=== PATIENT | female | born 1950 | race Two or more races ===

== ENCOUNTER → 2022-08-12 11:08 | Outpatient (BNVA) | payer MEDICARE, BC, SELFPAY | PROVIDERS: PCP Physician Assistant Medical; Visit Provider Student in an Organized Health Care Education/Training Program | DX: M19.041 Primary osteoarthritis, right hand (principal); M19.042 Primary osteoarthritis, left hand | CPT/HCPCS: 99202 ==

== ENCOUNTER 2023-04-27 09:43 | Outpatient (AMB) | payer MEDICARE, BC, SELFPAY ==
--- NOTE | 2023-04-27 09:49 | MHC.OFFVIS ---
Intake Vital Signs 04/27/23 09:51 Height 5 ft 1 in Weight 154 lb 5.177 oz BMI 29.2 BP 116/64 Blood Pressure Location Rt brachial Position Sitting Pulse 70 Pulse Source Pulse Oximeter Temp 97.3 F Temp Source Skin Pulse Oximetry (%) 96 Intake Visit Reasons: hand OA Intake Note: Pt seen today for hand OA follow up. States she completed OT and is using the brace nightly. Hand pain/discomfort has improved greatly Performance Improvement Specialist Required: No Accompanied by: Self / Same As Patient Allergies No Known Allergies Allergy (Verified 04/27/23 09:58) Medication List - Last Reconciled 04/27/23 by Will Padilla MD calcium citrate-vitamin D3 315 mg-5 mcg (200 unit) (Calcium Citrate + D) 1 tab PO DAILY cholecalciferol (vitamin D3) 50 mcg PO DAILY fluticasone propionate 50 mcg/actuation (Allergy Relief (fluticasone)) 1 spray intranasal DAILY magnesium citrate 250 mg PO DAILY ipbapvybjqze-xdwf-idbkv acid 18-400 mg-mcg (Centrum Women) 1 tab PO DAILY [thumb spica splint wear as much as possible throughout the day & all night] HPI HPI Comments History of Present Illness Details Pt seen today for hand OA follow up. States she completed OT and is using the brace nightly. Hand pain/discomfort has improved significantly. Does not use Tylenol or Voltaren gel Initial history: This is a 72-year-old female with past medical history of osteoporosis, hyperparathyroidism, dyslipidemia presents for evaluation of bilateral hand osteoarthritis. Patient states she has had bilateral hand osteoarthritis for many years. Her main complaint is his right thumb pain. The pain is usually worse when she has to open a can or do twisting movements with her hand or using a screwdriver. She has intermittent triggering of her left hand fingers but that has not been a problem lately. She has not tried any particular formal treatment for her hand arthritis. [facility] Medical History Hx of varicose veins Degeneration of cervical disc without myelopathy Intermittent palpitations Osteoporosis GERD (gastroesophageal reflux disease) Hyperlipidemia Vitamin D deficiency Hyperparathyroidism Surgical History History of bunionectomy History of thyroid surgery History of cholecystectomy Hx of colonoscopy Family History Mother Arthritis Father COPD (chronic obstructive pulmonary disease) Social History Household Members: Spouse Alcohol intake: current Alcohol intake frequency: a few times a month Patient Tobacco Use Status: Never used Tobacco Current occupational status: employed and retired 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 [employer] Review of Systems [facility] [place] and Reports arthralgias Physical Exam Vital Signs: Last Vital Signs Temp 97.3 F 04/27/23 09:51 Pulse 70 04/27/23 09:51 BP 116/64 04/27/23 09:51 Pulse Ox 96 04/27/23 09:51 BMI result Body Mass Index 29.2 Const General: cooperative, healthy appearing, comfortable and no acute distress Nutritional Appearance: overweight Limitations: no limitations HEENT Head: Yes normocephalic and Yes atraumatic Mouth: moist mucous membranes Resp Effort & Inspection: normal respiratory effort and able to speak in complete sentences Extrem Other: Significant bilateral hand osteoarthritic changes worse on the right hand with prominent Heberden's and Yoselin's nodes Right 1st CMC joint tenderness to palpation Positive right 1st CMC test with crepitus No triggering of her hands' flexor tendons today Assessment & Plan Assessment & Plan (1) Osteoarthritis of hands, bilateral: Code(s): M19.041 - Primary osteoarthritis, right hand; M19.042 - Primary osteoarthritis, left hand Qualifiers: Osteoarthritis type: primary Qualified Code(s): M19.041 - Primary osteoarthritis, right hand; M19.042 - Primary osteoarthritis, left hand Plan: This is a 72-year-old female who presents for evaluation of bilateral hand osteoarthritis. Her most symptomatic joint is her right 1st CMC joint. Patient started using a thumb splint since last visit and went occupational therapy. She feels much better. Follow-up as needed. Explained to patient that we can consider a steroid injection if symptoms are getting progressively worse Plan I spent 15 minutes reviewing patient's chart, evaluating patient, counseling patient and documenting in the chart Coding Level of Care Code Est Pt Level 3 (79381) Diagnoses Primary osteoarthritis of both hands M19.041; M19.042 Osteoarthritis type: primary
[2023-04-27 09:51] VITALS: BP 116/64; PULSE 70; TEMP 36.3; O2SAT 96; BMI 29.2
== END 2023-04-27 10:49 | disposition home or self-care (01) ==
PROVIDERS: PCP Physician Assistant Medical; Visit Provider Student in an Organized Health Care Education/Training Program
DX: M19.041 Primary osteoarthritis, right hand (principal); M19.042 Primary osteoarthritis, left hand
CPT/HCPCS: 99213

== ENCOUNTER → 2023-04-27 09:43 | Outpatient (BNVA) | payer MEDICARE, BC, SELFPAY | PROVIDERS: PCP Physician Assistant Medical; Visit Provider Student in an Organized Health Care Education/Training Program | DX: M19.041 Primary osteoarthritis, right hand (principal); M19.042 Primary osteoarthritis, left hand | CPT/HCPCS: 99212 ==

== ENCOUNTER 2025-06-20 13:46 | Outpatient (AMB) | payer MEDICARE, BC, SELFPAY ==
--- NOTE | 2025-06-20 13:51 | A.OFFVIS_ITS ---
Vital Signs 06/20/25 13:56 Height 5 ft 1 in Weight 155 lb 10.342 oz BMI 29.4 BP 120/82 Blood Pressure Location Lt brachial Position Sitting Pulse 95 Pulse Source Pulse Oximeter Pulse Oximetry (%) 95 Oxygen Delivery Method Room Air Intake Visit Reasons: hand OA Intake Note: Patient presents for hand OA follow up. Allergies No Known Allergies Allergy (Verified 06/20/25 13:54) Medication List - Last Reconciled 06/20/25 by Mercy Segovia MD calcium citrate-vitamin D3 315 mg-5 mcg (200 unit) (Calcium Citrate + D) 1 tab PO DAILY cholecalciferol (vitamin D3) 50 mcg PO DAILY fluticasone propionate 50 mcg/actuation (Allergy Relief (fluticasone)) 1 spray intranasal DAILY magnesium citrate 250 mg PO DAILY kbrakygiqeaf-dxui-lzbnk acid 18-400 mg-mcg (Centrum Women) 1 tab PO DAILY [thumb spica splint wear as much as possible throughout the day & all night] HPI Comments Details: Patient is a 75-year-old female with osteoarthritis to bilateral hands here today for follow up Interval History: Patient last seen 04/27/[address] Padilla - Not on rheum meds - States she completed OT and is using the brace nightly. Hand pain/discomfort has improved significantly. Does not use Tylenol or Voltaren gel Today - Not on any rheum meds - Splinting helps alot - No longer uses the gel - Here for new prescription for her CMC splint Rheumatologic History: Initial history: This is a 72-year-old female with past medical history of osteoporosis, hyperparathyroidism, dyslipidemia presents for evaluation of bilateral hand osteoarthritis. Patient states she has had bilateral hand osteoarthritis for many years. Her main complaint is his right thumb pain. The pain is usually worse when she has to open a can or do twisting movements with her hand or using a screwdriver. She has intermittent triggering of her left hand fingers but that has not been a problem lately. She has not tried any particular formal treatment for her hand arthritis. Current Rheumatology Medication(s): [facility] Medical History Hx of varicose veins Degeneration of cervical disc without myelopathy Intermittent palpitations Osteoporosis GERD (gastroesophageal reflux disease) Hyperlipidemia Vitamin D deficiency Hyperparathyroidism Surgical History History of bunionectomy History of thyroid surgery History of cholecystectomy Hx of colonoscopy Family History Mother Arthritis Father COPD (chronic obstructive pulmonary disease) Social History Household Members: Spouse Alcohol intake: current Alcohol intake frequency: a few times a month Patient Tobacco Use Status: Never used Tobacco Current occupational status: employed and retired 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 [employer] Review of Systems Narrative Review of Systems Constitutional: Denies fever, chills, weight loss ENT: Denies vision changes, eye pain or eye redness, dental caries, dry mouth GI: Denies nausea, vomiting, diarrhea, abdominal pain, change in BM Pulm: Denies SOB, NAVARRO, hemoptysis, wheezing Cards: Denies chest pain, palpitations Skin: Denies Raynaud's, rash, nail changes, photosensitivity, [employer]: Denies headaches, weakness, paresthesias, recurrent falls MSK: as per HPI All other systems reviewed and are unremarkable except noted above Physical Exam Exam Exam: Vital signs reviewed Physical Examination CONSTITUITIONAL Patient alert and cooperative. Well appearing and in no apparent painful distress MSK Hands * Right Hand: Able to make a fist. No swelling or tenderness to palpation of the MCPs, PIPs or DIPs. * Left Hand: Able to make a fist. No swelling or tenderness to palpation of the MCPs, PIPs or DIPs. * Herbedens nodes noted bilaterally with ulnar deviation at the level of the 3rd DIP Wrists * Right Wrist: Full ROM to flexion and extension. No swelling or TTP * Left Wrist: Full ROM to flexion and extension. No swelling or TTP Elbows * Right Elbow: Full ROM. No swelling or TTP. No TTP of the medial epicondyle. No TTP of the lateral epicondyle * Left Elbow: Full ROM. No swelling or TTP. No TTP of the medial epicondyle. No TTP of the lateral epicondyle Shoulders * Right shoulder: Full ROM. No swelling noted. No TTP of the AC joint. No TTP of the subacromial bursa. No TTP of the posterior shoulder * Left shoulder: Full ROM. No swelling noted. No TTP of the AC joint. No TTP of the subacromial bursa. No TTP of the posterior shoulder Hip bursa: No tenderness to palpation bilaterally Knees * Right knee: Full ROM. No swelling noted. No TTP of the knee joint line. No TTP of pes anserine bursa * Left knee: Full ROM. No swelling noted. No TTP of the knee joint line. No TTP of pes anserine bursa. * Crepitations felt bilaterally Ankles * Right ankle: Good ankle dorsiflexion and plantar flexion. No swelling. No TTP of the ankle joint * Left ankle: Good ankle dorsiflexion and plantar flexion. No swelling. No TTP of the ankle joint Feet * Right foot: Negative squeeze test * Left foot: Negative squeeze test Tender points? * No tenderness to palpation of the bilateral trapezius, supraspinatus, anterior costochondral junctions, bilateral suboccipital muscle insertions SKIN No rashes Vital Signs: Last Vital Signs Pulse 95 06/20/25 13:56 BP 120/82 06/20/25 13:56 Pulse Ox 95 06/20/25 13:56 Oxygen Delivery Method Room Air 06/20/25 13:56 BMI result Body Mass Index 29.4 Results Reviewed Results Reviewed: no labs Assessment & Plan Assessment & Plan (1) Osteoarthritis of hands, bilateral: Code(s): M19.041 - Primary osteoarthritis, right hand; M19.042 - Primary osteoarthritis, left hand Category: Medical Qualifiers: Osteoarthritis type: primary Qualified Code(s): M19.041 - Primary osteoarthritis, right hand; M19.042 - Primary osteoarthritis, left hand Plan: #Bilateral hand OA Patient is a 75-year-old female with bilateral hand osteoarthritis here today for follow up. Currently stable using splinting. Requesting a new script for splints Plan - Thumb spica splint R and L - RTC 6 months - Labs before visit: CBC, CMP, ESR, CRP, Vitamin D (2) Osteoporosis: Code(s): M81.0 - Age-related osteoporosis without current pathological fracture Qualifiers: Osteoporosis type: age-related Presence of current pathological fracture: without current pathological fracture Qualified Code(s): M81.0 - Age- related osteoporosis without current pathological fracture Plan: #Osteoporosis Patient with known osteoporosis previously treated by endocrinology. Patient states that she was on Prolia for 2 years and then was stopped and wanted to be transferred to [facility] but patient declined She is due for DEXA next year. Told patient to follow up with me in 6 months, and bring her last 3 DEXA scans Plan - Follow up DEXA Plan I spent 30 minutes reviewing the record and labs, taking a history, examining the patient, discussing the treatment plan, ordering diagnostic work up and documenting in the medical record Medications: Refilled [thumb spica splint] wear as much as possible throughout the day & all night 1 ea 0RF M18.12 - Unilateral primary osteoarthritis of first carpometacarpal joint, left hand [thumb spica splint] wear as much as possible throughout the day & all night 1 ea 0RF M18.12 - Unilateral primary osteoarthritis of first carpometacarpal joint, left hand Coding Level of Care Code Est Pt Level 4 (50905) Complex EM visit Add On G2211 Diagnoses Primary osteoarthritis of both hands M19.041; M19.042 Osteoarthritis type: primary Age-related osteoporosis without current pathological fracture M81.0 Osteoporosis type: age-related Presence of current pathological fracture: without current pathological fracture
[2025-06-20 13:56] VITALS: BP 120/82; PULSE 95; O2SAT 95; BMI 29.4
--- OUTSIDE RECORDS SUMMARY | 2025-06-20 20:09 | XMS_ITS | Encounter Summary ---
Author Organization [facility] Address [address] [place] [address] Phone Care Team Providers Care Paint Roller Covers Supervisor Name Role Phone Susy Sainz Primary Care Provi mila Encounter Details Date Type Department Care Team ([facility] st Contact Info) Description 06/15/2022 Procedure Pass Non-Invasive Cardiology [address] [place] [address] Social History Tobacco Use Types Packs/Day Years Used Date Smoking Tobacco: Never Smokeless Tobacco: Never Comments Unknown Sex and Gender Information Value Date Recorded Sex Assigned at Not on file Legal Sex Female 1:18 PM EDT Gender Identity Not on file Sexual Orientation Not on file documented as of this encounter Plan of Treatment Not on file documented as of this encounter Visit Diagnoses Not on filedocumented in this encounter Care Teams Paint Roller Covers Supervisor Relationship Specialty Start Date End Date Susy Sainz PA [address] [place] [address] PCP - General Health Information Internship 06/08/22 documented as of this encounter Additional Source Comments The information contained in this document represents components of the legal health record. It is not the complete legal health record.[facility]
--- OUTSIDE RECORDS SUMMARY | 2025-06-20 20:09 | XMS_ITS | Data Portability ---
Author Organization [facility], Main Office Address [address] [facility] [address] [facility] [address] [place] [address] Care Team Providers Care Warp Dresser Name Role Phone [facility] Reproduction Artist JASON EGAN Retail Pharmacy Manager JANELLE URBANO Primary Care Provider [phone] REJI GREGORY Reproduction Artist [phone] AAKASH CARRASQUILLO Hairspring Vibrator MELISA RÍOS Vascular Surgeon REMA ABREU Contract Runner CECILIO MANCERA Oxygen Furnace Operator Assessment Encounter Date Assessment Date Assessment LastModified by Organization Details LastModified Time 02/27/2023 02/27/2023 This service was provided using telemedicine. Patient consented to video & audio visit Patient was located in the [facility]. Provider was located in the office. No other persons participated in the telemedicine visit except for the patient unless otherwise indicated here. Total time of visit was 22 minutes. Not available 02/27/2023 09:54:03 07/03/2023 07/03/2023 This service was provided using telemedicine. Patient consented to video & audio visit Patient was located in the [facility]. Provider was located in the office. No other persons participated in the telemedicine visit except for the patient unless otherwise indicated here. Total time of visit was 23 minutes. Not available 07/03/2023 10:41:34 Plan of Treatment Reminders Order Date Submit Date Provider Last Modified By Organization Details Last Modified Time Details Appointments [id number] 2024 10:00A M Janelle Urbano PA-C Not available Not available Not available Lab CBC w/ auto diff 2023 024 ANUJA [facility] (Centralized Electronic Ordering - All Locations), Patient Can Go To The Location Of Their Choice, [id number] 07/09/2024 06:08:42 lipid panel, serum 2023 024 ANUJA [facility] (Centralized Electronic Ordering - All Locations), Patient Can Go To The Location Of Their Choice, [id number] 07/09/2024 06:08:44 CMP, serum or plasma 2023 024 ANUJA [facility] (Centralized Electronic Ordering - All Locations), Patient Can Go To The Location Of Their Choice, [id number] 07/09/2024 06:08:43 lipid panel, serum 2022 023 ANUJA [facility], [address], [address], [place], [address], 06/22/2023 16:44:49 CMP, serum or plasma 2022 023 ANUJA [facility], [address], [address], [place], [address], 06/22/2023 16:44:47 vitamin D, 25-hydrox y, total, serum 2022 023 ANUJA [facility], [address], [address], [place], [address], 06/22/2023 16:57:16 Referral None recorded. Procedures None recorded. Surgeries None recorded. Imaging MAMMO, screening , bilateral 2022 023 [facility], [address] [place], [address], 06/20/2023 10:57:13 Medication Orders triamcino lone acetonide 0.1 % topical cream 2022 023 [email or web address] [facility] #[id number], [address] [place] [address], [address], 06/20/2023 09:23:09 Patient TargetsNo targets recorded. Patient Instructions Encounter Date Encounter Id Patient Instructions Last Modified By Organization Details Last Modified Time 06/20/2023 [id number] advance care planning: care instructions Not available 06/20/2023 09:59:14 gastroesophageal reflux disease (GERD): care instructions Not available 06/20/2023 10:08:30 preventing falls : care instructions Not available 06/20/2023 09:44:37 medicare prevent venessa services guide (female 74yrs and under) Not available 06/20/2023 09:44:37 When You Want to Lose Weight: Care Instructions Not available 06/20/2023 09:44:37 heart valve dise ase: care instructions Not available 06/20/2023 10:12:47 dash diet: care instructions Not available 06/20/2023 09:53:17 07/03/2023 [id number] coronavirus (covid-19): care instructions Not available 07/03/2023 10:41:46 isolation procedures: care instructions Not available 07/03/2023 10:41:46 07/05/2024 [id number] cervical disc disease: care instructions Not available 07/05/2024 15:30:41 osteoporosis: ca re instructions Not available 07/05/2024 15:30:41 gastroesophageal reflux disease (GERD): care instructions Not available 07/05/2024 15:30:41 preventing falls : care instructions Not available 07/05/2024 15:30:41 well visit, over 65: care instructions Not available 07/05/2024 15:30:41 high cholesterol : care instructions Not available 07/05/2024 15:30:41 supraventricular tachycardia: care instructions Not available 07/05/2024 15:30:41 learning about healthy weight Not available 07/05/2024 15:30:41 heart valve dise ase: care instructions Not available 07/05/2024 15:30:41 high blood press ure: care instructions Not available 07/05/2024 15:30:42 learning about h igh blood pressure Not available 07/05/2024 15:30:41 Reason for Referral None Reported. Results Created Date Observation Date Name Description Value Unit Range Abnormal Flag Note LastModifiedBy Organization Detail LastModifiedTime 06/22/2006/22/2023 COMPR EHENS VENESSA METAB OLIC PANL glucose 87 mg/dL (70-99 ) Not Available [facility] (Centralized Electronic Ordering - All Locations) Patient Can Go To The Location Of Their Choice, 06/22/2023 16:44:47 06/22/2006/22/2023 COMPR EHENS VENESSA METAB OLIC PANL BUN 24 mg/dL (8-23) high Not Available [facility] (Centralized Electronic Ordering - All Locations) Patient Can Go To The Location Of Their Choice, 06/22/2023 16:44:47 06/22/2006/22/2023 COMPR EHENS VENESSA METAB OLIC PANL creatinine 0.7 mg/dL (0.5-1 .0) Not Available [facility] (Centralized Electronic Ordering - All Locations) Patient Can Go To The Location Of Their Choice, 06/22/2023 16:44:47 06/22/2006/22/2023 COMPR EHENS VENESSA METAB OLIC PANL sodium 139 mmol/ L (133-1 45) Not Available [facility] (Centralized Electronic Ordering - All Locations) Patient Can Go To The Location Of Their Choice, 06/22/2023 16:44:47 06/22/2006/22/2023 COMPR EHENS VENESSA METAB OLIC PANL potassium 4.5 mmol/ L (3.6-5 .2) Not Available [facility] (Centralized Electronic Ordering - All Locations) Patient Can Go To The Location Of Their Choice, 06/22/2023 16:44:47 06/22/2006/22/2023 COMPR EHENS VENESSA METAB OLIC PANL chloride 105 mmol/ L (98-10 7) Not Available [facility] (Centralized Electronic Ordering - All Locations) Patient Can Go To The Location Of Their Choice, 06/22/2023 16:44:47 06/22/2006/22/2023 COMPR EHENS VENESSA METAB OLIC PANL bicarbonate 26 mmol/ L (22-29 ) Not Available [facility] (Centralized Electronic Ordering - All Locations) Patient Can Go To The Location Of Their Choice, 06/22/2023 16:44:47 06/22/2006/22/2023 COMPR EHENS VENESSA METAB OLIC PANL anion gap 8 (4-17) Not Available [facility] (Centralized Electronic Ordering - All Locations) Patient Can Go To The Location Of Their Choice, 06/22/2023 16:44:47 06/22/2006/22/2023 COMPR EHENS VENESSA METAB OLIC PANL albumin 4.4 gm/dL (3.4-4 .8) Not Available [facility] (Centralized Electronic Ordering - All Locations) Patient Can Go To The Location Of Their Choice, 06/22/2023 16:44:47 06/22/2006/22/2023 COMPR EHENS VENESSA METAB OLIC PANL calcium 9.4 mg/dL (8.6-1 0.5) Not Available [facility] (Centralized Electronic Ordering - All Locations) Patient Can Go To The Location Of Their Choice, 06/22/2023 16:44:47 06/22/2006/22/2023 COMPR EHENS VENESSA METAB OLIC PANL bilirubin,to zaida 0.6 mg/dL (0-1.2 ) Not Available [facility] (Centralized Electronic Ordering - All Locations) Patient Can Go To The Location Of Their Choice, 06/22/2023 16:44:47 06/22/2006/22/2023 COMPR EHENS VENESSA METAB OLIC PANL total protein 6.7 gm/dL (6.2-8 .2) Not Available [facility] (Centralized Electronic Ordering - All Locations) Patient Can Go To The Location Of Their Choice, 06/22/2023 16:44:47 06/22/2006/22/2023 COMPR EHENS VENESSA METAB OLIC PANL Ag ratio 1.9 Not Available [facility] (Centralized Electronic Ordering - All Locations) Patient Can Go To The Location Of Their Choice, 06/22/2023 16:44:47 06/22/2006/22/2023 COMPR EHENS VENESSA METAB OLIC PANL AST 22 U/L (0-32) Not Available [facility] (Centralized Electronic Ordering - All Locations) Patient Can Go To The Location Of Their Choice, 06/22/2023 16:44:47 06/22/2006/22/2023 COMPR EHENS VENESSA METAB OLIC PANL alk phos 66 U/L (35-10 4) Not Available [facility] (Centralized Electronic Ordering - All Locations) Patient Can Go To The Location Of Their Choice, 06/22/2023 16:44:47 06/22/2006/22/2023 COMPR EHENS VENESSA METAB OLIC PANL ALT 27 U/L (0-33) Not Available [facility] (Centralized Electronic Ordering - All Locations) Patient Can Go To The Location Of Their Choice, 06/22/2023 16:44:47 06/22/2006/22/2023 COMPR EHENS VENESSA METAB OLIC PANL estimated GFR creatinine 88 mL/mi n/1.7 3_M2 Creat inine based estim ated glome rular filtr ation (eGFR ) in adult s is calcu lated using the Natio nal Kidne y Found ation recom dahiana d 2020 CKD-E PI equat ion. Estim ates GFR from serum creat inine , age and sex. Not Available [facility] (Centralized Electronic Ordering - All Locations) Patient Can Go To The Location Of Their Choice, 06/22/2023 16:44:47 06/22/2006/22/2023 LIPID PANEL cholesterol, total 243 mg/dL (<200) high Not Available [facility] ([facility] - All Locations) Patient Can Go To The Location Of Their Choice, 06/22/2023 16:44:49 06/22/2006/22/2023 LIPID PANEL triglyceride 87 mg/dL (<150) Not Available [facility] ([facility] - [facility] Locations) Patient Can Go To The Location Of Their Choice, 06/22/2023 16:44:49 06/22/2006/22/2023 LIPID PANEL HDL chol 66 mg/dL (>39) Not Available [facility] (Centralized Electronic Ordering - All Locations) Patient Can Go To The Location Of Their Choice, [id number] 06/22/2023 16:44:49 06/22/20 23 06/22/2023 LIPID PANEL LDL cholesterol, calculated 160 mg/dL (0-130 ) high Not Available [facility] ([facility]ized Electronic Ordering - All Locations) Patient Can Go To The Location Of Their Choice, [id number] 06/22/2023 16:44:49 06/22/20 23 06/22/2023 LIPID PANEL non HDL cholesterol (calc) 177 mg/dL (<160) high Not Available [facility] ([facility] Ordering - All Locations) Patient Can Go To The Location Of Their Choice, [id number] 06/22/2023 16:44:49 06/22/20 23 06/22/2023 25OH VITAM IN D 25OH vitamin D 47.2 NG/mL (20-50 ) Not Available [facility] ([facility]ized Electronic Ordering - All Locations) Patient Can Go To The Location Of Their Choice, [id number] 06/22/2023 16:57:16 07/08/20 24 07/08/2024 CBC WITH DIFFE RENTI AL/PL ATELE T WBC 5.3 x10e3 /uL 3.4-10 .8 normal Not Available [facility] ([facility]) [address] [place], [address], 07/09/2024 06:08:42 07/08/20 24 07/08/2024 CBC WITH DIFFE RENTI AL/PL ATELE T RBC 4.99 x10e6 /uL 3.77-5 .28 normal Not Available [facility] ([facility]) [address] [place], [address], 07/09/2024 06:08:42 07/08/20 24 07/08/2024 CBC WITH DIFFE RENTI AL/PL ATELE T hemoglobin 15.6 g/dL 11.1-1 5.9 normal Not Available [facility] ([facility]) [address] [place], [address], 07/09/2024 06:08:42 07/08/20 24 07/08/2024 CBC WITH DIFFE RENTI AL/PL ATELE T hematocrit 47.3 % 34.0-4 6.6 above high normal Not Available [facility] ([facility]) [address] [place], [address], 07/09/2024 06:08:42 07/08/20 24 07/08/2024 CBC WITH DIFFE RENTI AL/PL ATELE T MCV 95 fL 79-97 normal Not Available [facility] ([facility]) [address] [place], [address], 07/09/2024 06:08:42 07/08/20 24 07/08/2024 CBC WITH DIFFE RENTI AL/PL ATELE T MCH 31.3 pg 26.6-3 3.0 normal Not Available [facility] ([facility]) [address] [place], [address], 07/09/2024 06:08:42 07/08/20 24 07/08/2024 CBC WITH DIFFE RENTI AL/PL ATELE T MCHC 33.0 g/dL 31.5-3 5.7 normal Not Available [facility] ([facility]) [address] [place], [address], 07/09/2024 06:08:42 07/08/20 24 07/08/2024 CBC WITH DIFFE RENTI AL/PL ATELE T RDW 12.2 % 11.7-1 5.4 Not Available [facility] ([facility]) [address] [place], [address], 07/09/2024 06:08:42 07/08/20 24 07/08/2024 CBC WITH DIFFE RENTI AL/PL ATELE T platelets 209 x10e3 /uL 150-45 0 normal Not Available [facility] ([facility]) [address] [place], [address], 07/09/2024 06:08:42 07/08/20 24 07/08/2024 CBC WITH DIFFE RENTI AL/PL ATELE T neutrophils 71 % not estab. normal Not Available [facility] ([facility]) [address] [place], [address], 07/09/2024 06:08:42 07/08/20 24 07/08/2024 CBC WITH DIFFE RENTI AL/PL ATELE T lymphs 17 % not estab. normal Not Available [facility] ([facility]) [address] [place], [address], 07/09/2024 06:08:42 07/08/20 24 07/08/2024 CBC WITH DIFFE RENTI AL/PL ATELE T monocytes 9 % not estab. normal Not Available [facility] ([facility]) [address] [facility], [place], [address], 07/09/2024 06:08:42 07/08/20 24 07/08/2024 CBC WITH DIFFE RENTI AL/PL ATELE T eos 2 % not estab. normal Not Available [facility] ([facility]) [address] [facility], [place], [address], 07/09/2024 06:08:42 07/08/20 24 07/08/2024 CBC WITH DIFFE RENTI AL/PL ATELE T basos 1 % not estab. normal Not Available [facility] ([facility]) [address] [facility], [place], [address], 07/09/2024 06:08:42 07/08/20 24 07/08/2024 CBC WITH DIFFE RENTI AL/PL ATELE T immature cells UNIVERSITY PROFESSOR Not Available [facility] ([facility]) [address] [place], [address], 07/09/2024 06:08:42 07/08/20 24 07/08/2024 CBC WITH DIFFE RENTI AL/PL ATELE T neutrophils (absolute) 3.8 x10e3 /uL 1.4-7. 0 normal Not Available [facility] ([facility]) [address] [facility], [place], [address], 07/09/2024 06:08:42 07/08/20 24 07/08/2024 CBC WITH DIFFE RENTI AL/PL ATELE T lymphs (absolute) 0.9 x10e3 /uL 0.7-3. 1 normal Not Available [facility] ([facility]) [address] [facility], [place], [address], 07/09/2024 06:08:42 07/08/20 24 07/08/2024 CBC WITH DIFFE RENTI AL/PL ATELE T monocytes(ab solute) 0.5 x10e3 /uL 0.1-0. 9 normal Not Available [facility] ([facility]) [address] [facility], [place], [address], 07/09/2024 06:08:42 07/08/20 24 07/08/2024 CBC WITH DIFFE RENTI AL/PL ATELE T eos (absolute) 0.1 x10e3 /uL 0.0-0. 4 normal Not Available [facility] ([facility]) [address] [facility], [place], [address], 07/09/2024 06:08:42 07/08/20 24 07/08/2024 CBC WITH DIFFE RENTI AL/PL ATELE T baso (absolute) 0.0 x10e3 /uL 0.0-0. 2 normal Not Available [facility] ([facility]) [address] [facility], [place], [address], 07/09/2024 06:08:42 07/08/20 24 07/08/2024 CBC WITH DIFFE RENTI AL/PL ATELE T immature granulocytes 0 % not estab. Not Available [facility] ([facility]) [address] [facility], [place], [address], 07/09/2024 06:08:42 07/08/20 24 07/08/2024 CBC WITH DIFFE RENTI AL/PL ATELE T immature grans (abs) 0.0 x10e3 /uL 0.0-0. 1 Not Available [facility] ([facility]) [address] [facility], [place], [address], 07/09/2024 06:08:42 07/08/20 24 07/08/2024 CBC WITH DIFFE RENTI AL/PL ATELE T NRBC UNIVERSITY PROFESSOR Not Available [facility] ([facility]) [address] [facility], [place], [address], 07/09/2024 06:08:42 07/08/20 24 07/08/2024 CBC WITH DIFFE RENTI AL/PL ATELE T hematology comments: UNIVERSITY PROFESSOR Not Available [facility] ([facility]) [address] [facility], [place], [address], 07/09/2024 06:08:42 07/08/20 24 07/08/2024 COMP. METAB OLIC PANEL (14) glucose 85 mg/dL 70-99 normal Not Available [facility] ([facility]) [address] [facility], [place], [address], 07/09/2024 06:08:43 07/08/20 24 07/08/2024 COMP. METAB OLIC PANEL (14) BUN 16 mg/dL 8-27 normal Not Available [facility] ([facility]) [address] [place], [address], 07/09/2024 06:08:43 07/08/20 24 07/08/2024 COMP. METAB OLIC PANEL (14) creatinine 0.72 mg/dL 0.57-1 .00 normal Not Available [facility] ([facility]) [address] [place], [address], 07/09/2024 06:08:43 07/08/20 24 07/08/2024 COMP. METAB OLIC PANEL (14) eGFR 89 mL/mi n/1.7 3 >59 normal Not Available [facility] ([facility]) [address] [facility], [place], [address], 07/09/2024 06:08:43 07/08/20 24 07/08/2024 COMP. METAB OLIC PANEL (14) BUN/creatini ne ratio 22 12-28 normal Not Available [facility] ([facility]) [address] [place], [address], 07/09/2024 06:08:43 07/08/20 24 07/08/2024 COMP. METAB OLIC PANEL (14) sodium 139 mmol/ L 134-14 4 normal Not Available [facility] ([facility]) [address] [place], [address], 07/09/2024 06:08:43 07/08/20 24 07/08/2024 COMP. METAB OLIC PANEL (14) potassium 4.3 mmol/ L 3.5-5. 2 normal Not Available [facility] ([facility]) [address] [place], [address], 07/09/2024 06:08:43 07/08/20 24 07/08/2024 COMP. METAB OLIC PANEL (14) chloride 103 mmol/ L 96-106 normal Not Available [facility] ([facility]) [address] [place], [address], 07/09/2024 06:08:43 07/08/20 24 07/08/2024 COMP. METAB OLIC PANEL (14) carbon dioxide, total 22 mmol/ L 20-29 normal Not Available [facility] ([facility]) [address] [facility] [place], [address], 07/09/2024 06:08:43 07/08/20 24 07/08/2024 COMP. METAB OLIC PANEL (14) calcium 9.2 mg/dL 8.7-10 .3 normal Not Available [facility] ([facility]) [address] [facility] [place], [address], 07/09/2024 06:08:43 07/08/20 24 07/08/2024 COMP. METAB OLIC PANEL (14) protein, total 6.6 g/dL 6.0-8. 5 normal Not Available [facility] ([facility]) [address] [facility], [place], [address], 07/09/2024 06:08:43 07/08/20 24 07/08/2024 COMP. METAB OLIC PANEL (14) albumin 4.3 g/dL 3.8-4. 8 normal Not Available [facility] ([facility]) [address] [facility], [place], [address], 07/09/2024 06:08:43 07/08/20 24 07/08/2024 COMP. METAB OLIC PANEL (14) globulin, total 2.3 g/dL 1.5-4. 5 Not Available [facility] ([facility]) [address] [facility], [place], [address], 07/09/2024 06:08:43 07/08/20 24 07/08/2024 COMP. METAB OLIC PANEL (14) bilirubin, total 0.7 mg/dL 0.0-1. 2 normal Not Available [facility] ([facility]) [address] [facility], [place], [address], 07/09/2024 06:08:43 07/08/20 24 07/08/2024 COMP. METAB OLIC PANEL (14) alkaline phosphatase 70 IU/L 44-121 normal Not Available [facility] ([facility]) [address] [facility] [place], [address], 07/09/2024 06:08:43 07/08/20 24 07/08/2024 COMP. METAB OLIC PANEL (14) AST (SGOT) 22 IU/L 0-40 normal Not Available [facility] ([facility]) [address] [facility], [place], [address], 07/09/2024 06:08:43 07/08/20 24 07/08/2024 COMP. METAB OLIC PANEL (14) ALT (SGPT) 22 IU/L 0-32 normal Not Available [facility] ([facility]) [address] [place], [address], 07/09/2024 06:08:43 07/08/20 24 07/08/2024 LIPID PANEL cholesterol, total 223 mg/dL 100-19 9 above high normal Not Available [facility] ([facility]) [address] [facility] [place], [address], 07/09/2024 06:08:43 07/08/20 24 07/08/2024 LIPID PANEL triglyceride s 100 mg/dL 0-149 normal Not Available [facility] ([facility]) [address] [facility] [place], [address], 07/09/2024 06:08:43 07/08/20 24 07/08/2024 LIPID PANEL HDL cholesterol 67 mg/dL >39 normal Not Available [facility] ([facility]) [address] [facility] [place], [address], 07/09/2024 06:08:43 07/08/20 24 07/08/2024 LIPID PANEL VLDL cholesterol katt 18 mg/dL 5-40 Not Available [facility] ([facility]) [address] [facility] [place], [address], 07/09/2024 06:08:43 07/08/20 24 07/08/2024 LIPID PANEL LDL chol calc ([facility]) 138 mg/dL 0-99 above high normal Not Available [facility] ([facility]) [address] [facility] [place], [address], 07/09/2024 06:08:43 07/08/20 24 07/08/2024 LIPID PANEL LDL calc comment: UNIVERSITY PROFESSOR Not Available [facility] ([facility]) [address] [facility] [place], [address], 07/09/2024 06:08:43 07/01/20 24 07/01/2024 MAMMO , scree travis, digit al, bilat eral PROCED URE: MM Digita l Mammo Screen ing INDICA TION: Screen ing for breast cancer . COMPAR PRIYANKA: Multip le prior examin ations , most recent ly 2022. TECHNI QUE: Full-f ield digita l CC and MLO 3D tomosy nthesi s images of both breast s were acquir ed. Comput er-aid ed detect ion (CAD) was utiliz ed in the interp retati on of this study. DENSIT Y: The breast tissue The breast tissue is hetero geneou sly dense, which may obscur e small masses . FINDIN GS: No suspic ious masses , suspic ious microc alcifi cation s, or areas of renu ectura l distor tion are seen in either breast to sugges t malign jane. IMPRES ALESIA: No mammog raphic eviden ce of malign jane. RECOMM ENDATI ON: Annual mammog raphic screen ing BI-RAD S: 1 (Negat venessa) Lay letter mailed to nilton t I have person ally review ed the images and I agree with this report . WSN: [id number] Orderi ng Physic angelina: Dionte Urbano Dictat ed By: Tuan gorman MD, Callie Beckett Dictat ed Date/T ramakrishna: 4:37 pm Review ed By: Eri Mart MD Signed By: Eri Mart MD Signed Date/T ramakrishna: 4:42 pm Transc ribed By: CSB Transc riptio n Date/T ramakrishna: 3:36 pm Birads : Nilton beckett Class: Outpat ient [facility] (Outpt Imaging) [address] [place], [address], 07/02/2024 07:53:48 07/01/20 24 07/01/2024 MAMMO , scree travis, bilat eral No observ ation record ed. [email or web address] [facility] [address], [place], [address], 07/02/2024 10:49:35 Result Notes Documentation Provider Name and Address Organization Details Recorded Time Mammo, Screening, Digital, Bilateral : PROCEDURE: MM Digital Mammo Screening INDICATION: Screening for breast cancer. COMPARISON: Multiple prior examinations, most recently 06/27/2023. TECHNIQUE: Full-field digital CC and MLO 3D tomosynthesis images of both breasts were acquired. Computer-aided detection (CAD) was utilized in the interpretation of this study. DENSITY: The breast tissue The breast tissue is heterogeneously dense, which may obscure small masses. FINDINGS: No suspicious masses, suspicious microcalcifications, or areas of architectural distortion are seen in either breast to suggest malignancy. IMPRESSION: No mammographic evidence of malignancy. RECOMMENDATION: Annual mammographic screening BI-RADS: 1 (Negative) Lay letter mailed to patient I have personally reviewed the images and I agree with this report. WSN: [id number] Ordering Physician: Janelle Urbano Dictated By: Ricky Beasley MD Dictated Date/Time: 07/01/24 4:37 pm Reviewed By: Lucy Mart MD Signed By: Lucy Mart MD Signed Date/Time: 07/01/24 4:42 pm Transcribed By: SIMEON Pre Kindergarten Teacher Date/Time: 07/01/24 3:36 pm Birads: Patient Class: Outpatient [facility] 07/02/2024 07:53:48 Problems Name Problem SNOMED Code Status Onset Date Resolution Date Notes Provider Name and Address Organization Details Recorded Time Hand pain 72454994 Completed 11/03/2016 [facility] 7 14:54:40 Suspecte d COVID-19 [id number] Completed 06/16/2021 Removal Reason: Problem added by user [email or web address] from the COVID-19 watch flag [facility]ina [facility] 1 09:08:35 Allergic rhinitis 56604832 Completed 200702/25/2014 RECORDED 05/13/20 08 12:42PM BY WAQAS PAPPAS ON/ADDEN DUM Not Available [facility] 4 14:24:15 Allergic rhinitis [id number] Completed 200703/17/2014 RECORDED 05/13/20 08 12:42PM BY BRAN [place], KHOAATI ON/ADDEN DUM Not Available [facility] [facility] 4 06:41:34 Administ ration of bacteria l and viral vaccine Completed 201002/25/2014 RECORDED 10/08/19 11 11:24AM BY OMID DYKES MD, OFFICE VISIT Not Available [facility] 4 14:24:16 Screenin g for malignan t neoplasm of colon Completed 201002/25/2014 DATE: 10/08/19 11; RECORDED 02/02/20 13 1:24PM BY NELSON QUINONES MA, ANNOTATI ON/ADDEN DUM Not Available [facility] 4 14:24:17 Administ ration of bacteria l and viral vaccine Completed 201003/17/2014 RECORDED 10/08/19 11 11:24AM BY OMID DYKES MD, OFFICE VISIT Not Available [facility] 4 06:41:34 Screenin g for malignan t neoplasm of colon Completed 201003/17/2014 DATE: 10/08/19 11; RECORDED 02/02/20 13 1:24PM BY NELSON QUINONES MA, ANNOTATI ON/ADDEN DUM Not Available [facility] 4 06:41:34 Influenz a vaccine needed [id number] 06 Completed 201002/25/2014 RECORDED 06/25/20 11 10:47AM BY LUIGI MONTANA MA, NURSE VISIT Not Available [facility] 4 14:24:16 Influenz a vaccine needed [id number] 06 Completed 201003/17/2014 RECORDED 06/25/20 11 10:47AM BY LUIGI MONTANA MA, NURSE VISIT Not Available [facility] 4 06:41:34 Hyperlip idemia 58709214 Completed 201102/25/2014 RECORDED 10/10/19 12 9:56AM BY OMID DYKES MD, ANNOTATI ON/ADDEN DUM Luigi birmingham [facility] null, [facility] 0 13:30:55 Hyperlip idemia 01858153 Completed 201103/17/2014 RECORDED 10/10/19 12 9:56AM BY OMID DYKES MD, ANNOTATI ON/ADDEN DUM SAEID Al[facility], [facility] 0 13:30:55 Epigastr ic pain 35892277 Completed 201202/25/2014 RECORDED 02/02/20 13 1:24PM BY NELSON QUINONES MA, ANNOTATI ON/ADDEN DUM Not Available [facility] 4 14:24:15 Acne 59486032 Completed 201211/03/2016 Angelika mckenna, [facility] 7 14:54:01 Screenin g for malignan t neoplasm of breast Completed 201202/25/2014 RECORDED 02/02/20 13 1:25PM BY NELSON QUINONES MA, ANNOTATI ON/ADDEN DUM Not Available [facility] 4 14:24:16 Screenin g for malignan t neoplasm of cervix Completed 201202/25/2014 RECORDED 02/02/20 13 1:24PM BY NELSON QUINONES MA, ANNOTATI ON/ADDEN DUM Not Available [facility] 4 14:24:16 Contact dermatit is 56665963 Completed 201202/25/2014 RECORDED 02/02/20 13 1:24PM BY NELSON QUINONES MA, ANNOTATI ON/ADDEN DUM Not Available [facility] 4 14:24:16 Gastroes ophageal reflux disease 467398767 Completed 201202/25/2014 RECORDED 02/02/20 13 1:25PM BY NELSON QUINONES MA, ANNOTATI ON/ADDEN DUM Angelika mckenna, [facility] 7 14:54:12 Gastroes ophageal reflux disease 631386950 Active 2012 SAEID [facility], [facility] 3 09:14:13 Adult health examinat ion Completed 201211/03/2016 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; RECORDED 02/02/20 13 1:50PM BY OMID DYKES MD, OFFICE VISIT Angelika mckenna, [facility] 7 14:54:04 Laborato ry procedur e performe d [id number] Completed 201202/25/2014 RECORDED 02/02/20 13 1:24PM BY NELSON QUINONES MA, ANNOTATI ON/ADDEN DUM Not Available [facility] 4 14:24:16 Patient status finding [id number] Completed 201211/03/2016 RECORDED 02/02/20 13 1:28PM BY NELSON QUINONES MA, OFFICE VISIT Angelika mckenna, [facility] 7 14:53:55 Osteopor osis 40031621 Active 2012 SAEID B[facility], [facility] 3 09:14:13 Pain of joint of hand 518479581 Completed 201202/25/2014 RECORDED 02/02/20 13 1:25PM BY NELSON QUINONES MA, ANNOTATI ON/ADDEN DUM Not Available [facility] 4 14:24:16 Pain of joint 33760993 Completed 201202/25/2014 RECORDED 02/02/20 13 1:24PM BY NELSON QUINONES MA, ANNOTATI ON/ADDEN DUM Not Available [facility] 4 14:24:16 Primary hyperpar athyroid ism 89941026 Active 2012 Pt. had parathyr oid surgery. SAEID B[facility], [facility] 3 09:14:13 Adult health examinat ion Completed 201202/25/2014 RECORDED 02/02/20 13 1:24PM BY NELSON QUINONES MA, ANNOTATI ON/ADDEN DUM Angelika mckenna, [facility] 7 14:54:04 Disorder of bone and articula r cartilag e 421856422 Completed 201211/03/2016 Angelika mckenna, [facility] 7 14:54:57 Vitamin D deficien cy 83800880 Active 2012 SAEID B[facility], [facility] 3 09:14:13 Verruca vulgaris 53624876 Completed 201202/25/2014 RECORDED 02/02/20 13 1:25PM BY NELSON QUINONES MA, ANNOTATI ON/ADDEN DUM Not Available [facility] 4 14:24:17 Epigastr ic pain 89240367 Completed 201203/17/2014 RECORDED 02/02/20 13 1:24PM BY NELSON QUINONES MA, ANNOTATI ON/ADDEN DUM Not Available [facility] 4 06:41:34 Screenin g for malignan t neoplasm of breast Completed 201203/17/2014 RECORDED 02/02/20 13 1:24PM BY NELSON QUINONES MA, ANNOTATI ON/ADDEN DUM Not Available [facility] 4 06:41:34 Screenin g for malignan t neoplasm of cervix Completed 201203/17/2014 RECORDED 02/02/20 13 1:24PM BY NELSON QUINONES MA, ANNOTJENNIE ON/ADDEN DUM Not Available [facility] 4 06:41:34 Contact dermatit is 85922502 Completed 201203/17/2014 RECORDED 02/02/20 13 1:24PM BY NELSON QUINONES MA, ANNOTATI ON/ADDEN DUM Not Available [facility] 4 06:41:34 Gastroes ophageal reflux disease 445014514 Completed 201203/17/2014 RECORDED 02/02/20 13 1:25PM BY NELSON QUINONES MA ANNOTATI ON/ADDEN DUM Angelika mckenna, [facility] 7 14:54:12 Laborato ry procedur e performe d 710698713 Completed 201203/17/2014 RECORDED 02/02/20 13 1:24PM BY NELSON QUINONES MA, ANNOTATI ON/ADDEN DUM Not Available [facility] 4 06:41:34 Pain of joint of hand 350423704 Completed 201203/17/2014 RECORDED 02/02/20 13 1:25PM BY NELSON QUINONES MA, ANNOTATI ON/ADDEN DUM Not Available [facility] 4 06:41:34 Pain of joint 91037378 Completed 201203/17/2014 RECORDED 02/02/20 13 1:24PM BY NELSON QUINONES MA, ANNOTATI ON/ADDEN DUM Not Available [facility] 4 06:41:34 Verruca vulgaris 08261409 Completed 201203/17/2014 RECORDED 02/02/20 13 1:25PM BY NELSON QUINONES MA, ANNOTATI ON/ADDEN DUM Not Available [facility] 4 06:41:34 Hyperlip idemia 85877786 Active 2019 SAEID [facility] 3 09:14:13 Degenera tion of cervical interver tebral disc 63011719 Active 2019 SAEID [facility] 3 09:14:13 Varicose veins of lower extremit y 36693124 Active 2019 SAEID B[facility], [facility] 3 09:14:13 Exposure to viral disease Completed 201905/21/2020 SAEID Alvarez, [facility] 0 13:31:06 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 95872274876 9109 Active 2021 SAEID [facility] 3 09:14:13 Electroc ardiogra m abnormal 954711896 Active 2021 Misti Gupta MA null, [facility] 3 09:14:13 Benign essentia l hyperten alesia 4143433 Active 2021 Misti Gupta MA null, [facility] 3 09:14:13 Chest pain 22868148 Active 2021 Misti Gupta MA null, [facility] 3 09:14:13 Paroxysm al supraven tricular tachycar giselle 29719301 Active 2022 SAEID B[facility], [facility] 3 09:14:13 Body mass index 25-29 - overweig ht 755740819 Active 2022 Janelle Urbano PA-C [address], [place], [address] , [facility] 3 09:44:37 Aortic valve disorder 6148808 Active 2022 Janelle Urbano PA-C [address], [place], [address] , [facility] 3 10:12:41 COVID-19 333146319 Active 2022 Janelle Urbano PA-C [address], [place], [address] , [facility] 3 10:41:40 Problem Notes None recorded. Procedures Surgical History Date Name Laterality Status Provider Name and Address Organization Details Recorded Time 024 Most Recent Mammogram completed [facility] 07/02/2024 07:53:44 024 Mammogram both breasts completed Keira [facility]ado [facility] 07/05/2024 15:12:51 023 Advanced Care Planning completed Janelle Urbano PA-C [address], [place], [address], [facility] 06/20/2023 09:58:56 021 Mammogram screening completed Marian[facility] 06/21/2021 14:23:20 020 Six-Item Cognitive Test completed Rocio [facility] 02/10/2020 08:44:57 019 Date of Last Pap Smear completed Faye [facility] 06/25/2019 13:40:22 019 Date of Last Colonoscopy completed [facility] 08/24/2018 10:27:46 019 Colonoscopy completed [facility] 08/24/2018 10:27:36 019 Mini-Cog Test completed Angelika [facility]onan [facility] 08/14/2018 15:28:03 017 FOBT completed Luigi harman [facility] 03/28/2017 16:23:06 014 Most Recent Bone Density completed Angelika [facility]an [facility] 06/02/2015 09:57:46 011 Other completed [facility]aciela Francis [facility] 04/09/2021 13:43:51 008 Gastrointestinal Surgery completed Graciela [facility] 04/09/2021 13:43:51 008 Cholecystectomy completed [facility]aciela [facility] 06/07/2022 10:41:04 Cataract Surgery completed Keira [facility] 07/05/2024 15:14:30 Cataract Surgery completed Keira [facility] 07/05/2024 15:14:48 Imaging Results None recorded. Procedure Notes None recorded. Medical Equipment None Reported. Allergies Allergen ID Allergen Name Allergen Category Reaction Reaction Severity Criticality Documentation Date Start Date Code Code System Note Provider Name and Address Organization Details Recorded Time 9222 No known allergy (situatio n) Not available Not available Not available Not available 02/18/20142012 40482 6003 SNSABINA mckenna [facility] 7 15:13:25 No known drug allergies Medications Name Sig Start Date Stop Date Status Note LastModified by Organization Details LastModified Time amoxicill in 500 mg capsule TAKE 1 CAPSULE BY MOUTH THREE TIMES A DAY active Not Available Not Available No t Available clindamyc in HCl 300 mg capsule TAKE 1 CAPSULE 3 TIMES A DAY UNTIL FINISHED 07/05 completed Not Available Not Available Not Available azithromy yeison 250 mg tablet TAKE 2 TABLETS BY MOUTH TODAY, THEN TAKE 1 TABLET DAILY FOR 4 DAYS 02/27 completed Not Available Not Available Not Available Claritin 10 mg tablet Take 1 tablet every day by oral route as directed . 04/11 completed Not Available Not Available Not Available meloxicam 15 mg tablet Take 1 tablet every day by oral route for 30 days. 05/21 completed Not Available Not Available Not Available alendrona te 70 mg tablet TAKE 1 TABLET BY MOUTH EVERY WEEK 02/27 completed disconti nued in jun 2023 Not Available Not Available Not Available clindamyc in HCl 150 mg capsule TAKE 1 CAPSULE BY MOUTH EVERY 6 HOURS active Not Available Not Available No t Available fexofenad ine 180 mg tablet Take every 24 hours by oral route. 06/20 completed Not Available Not Available Not Available triamcino lone acetonide 0.1 % topical cream APPLY THIN COAT TO AFFECTED AREA TWICE A DAY 06/20 completed Not Available Not Available Not Available calcium 315 mg (as citrate)- ergocalci ferol (vit D2) 200 unit tablet Take every 24 hours by oral route. 06/20 completed Not Available Not Available Not Available ketorolac 0.5 % eye drops INSTILL STARTING TWO DAYS BEFORE SURGERY 1 DROP TWICE A DAY IN OPERATIV E EYE 07/05 completed Not Available Not Available Not Available calcium 600 mg (as calcium carbonate 1,500 mg) tablet Take 1 tablet every day by oral route as directed . 02/09 completed Not Available Not Available Not Available prednisol one acetate 1 % eye drops,tracey pension INSTILL 1 DROP INTO THE LASERED EYE 3 TIMES A DAY FOR 5 DAYS FOLLOWIN G LASER 07/05 completed Not Available Not Available Not Available halobetas ol propionat e 0.05 % topical ointment APPLY A THIN LAYER TO THE AFFECTED AREA(S) BY TOPICAL ROUTE ONCE DAILY DO NOT EXCEED 50 GRAMS PER WEEK OR 2 WEEKS DURATION 04/11 completed Not Available Not Available Not Available ergocalci ferol (vitamin D2) 1,250 mcg (50,000 unit) capsule Take 1 capsule every day by oral route. 04/11 completed Not Available Not Available Not Available triamcino lone acetonide 0.1 % lotion Apply 0.1 mg every day by topical route for 30 days. 04/11 completed Not Available Not Available Not Available fluticaso ne propionat e 50 mcg/actua tion nasal spray,tracey pension [place] 1 spray every day by nasal route as directed for 60 days. 06/20 completed Not Available Not Available Not Available Calcium Citrate + D 315 mg-5 mcg (200 unit) tablet Take 1 tablet every day by oral route. active Not Available Not Available No t Available Vitamin D 50,000 unit capsule ONCE A WEEK 02/09 completed RECORDED 02/10/20 10 1:00PM BY OMID DYKES MD, REFILL REQUEST; THIS ORDER DISCONTI NUED PER Helicomm-SPA N. Not Available Not Available Not Available cyclobenz aprine 5 mg tablet Take 1 tablet every day by oral route for 14 days. 02/09 completed Not Available Not Available Not Available omeprazol e magnesium 20 mg tablet,de layed release Take 1 tablet as needed by oral route. active rarely uses Not Available Not Available Not Available magnesium 150 mg daily active Not Available Not Available No t Available omeprazol e QD 10/07 completed RECORDED 10/08/19 11 11:30AM BY OMID DYKES MD, ANNOTATI ON/FATMATA DUM; Not Available Not Available Not Available Centrum Silver 1 daily active Not Available Not Available Not Available Zostavax (PF) 19,400 unit/0.65 mL subcutane ous suspensio n IBETH X 1 10/20 completed RECORDED 10/30/19 13 2:36PM BY OMID DYKES MD, MEDICATI ON AUTO-LUIS CTIVATIO N; Not Available Not Available Not Available diclofena c 1 % topical gel APPLY 2G TOPICALL Y 4 TIMES A DAY APPLY TO AFFECTED JOINT 02/27 completed Not Available Not Available Not Available vitamin E mixed-priya otrienol active Not Available Not Available Not Available Prolia 60 mg/mL subcutane ous syringe Inject 60 mL every 3 months by sub-q route as directed for 30 days. 08/14 completed 60 ml every 6 months Not Available Not Available Not Available Probiotic 1 daily active Not Available Not Av ailable Not Available Vitamin D3 50 mcg (2,000 unit) capsule 1 capsule every day by oral route. active Not Available Not Available No t Available Fluarix Quad [id number] (PF) 60 mcg (15 mcg x 4)/0.5 mL IM syringe 11/03 completed Not Available Not Available Not Available magnesium citrate 125 mg capsule Take 1 capsule every day by oral route. 06/18 completed Not Available Not Available Not Available Clenpiq 10 mg-3.5 gram-12 gram/160 mL oral solution 02/05 completed Not Available Not Available Not Available Fluzone High-Dose Quad (PF) 240 mcg/0.7 mL IM syringe PHARMACY ADMINIST ERED 05/21 completed Not Available Not Available Not Available BinaxNOW COVID-19 Ag Self Test kit 07/03 completed Not Available Not Available Not Available Vitals Date Recorded Body height Body mass index (BMI) Body weight Heart rate Oxygen saturation Oxygen saturation in Arterial blood by Pulse oximetry Body temperature Systolic And Diastolic Provider Name and Address Organization Details Last Updated DateTime 5 156.21 cm 28.1 kg/m2 53511.4 5 g 81 /min 97 % 97 % 98 [degF] 129/78 mm[Hg] Abimbola Ocampo [facility] 5 15:22:06 Date Recorded Body height Body mass index (BMI) Body weight Provider Name and Address Organization Details Last Updated DateTime 02/27/2023 156.21 cm 28.4 kg/m2 04674.63 g Lucy Higgins [place] [facility] 02/27/2023 09:35:25 Date Recorded Body height Body mass index (BMI) Body weight Oxygen saturation Oxygen saturation in Arterial blood by Pulse oximetry Heart rate Body temperature Systolic And Diastolic Provider Name and Address Organization Details Last Updated DateTime 3 156.21 cm 28.8 kg/m2 40057.8 2 g 98 % 98 % 83 /min 97.3 [degF] 127/77 mm[Hg] Misti Gupta [facility] 3 09:20:38 Date Recorded Body height Body mass index (BMI) Body weight Heart rate Oxygen saturation Oxygen saturation in Arterial blood by Pulse oximetry Body temperature Systolic And Diastolic Provider Name and Address Organization Details Last Updated DateTime 4 156.21 cm 27.6 kg/m2 97854.7 7 g 87 /min 96 % 96 % 97.3 [degF] 121/76 mm[Hg] Keira [facility]ado [facility] 4 15:08:22 Social History Question Answer Notes LastModified by Organizat ion Details LastModified Time Tobacco Smoking Status [facility] 09:58:05 Do You Have An Advance Directive? No [email or web address] Information not available 06/20/2023 Is Blood Transfusion Acceptable In An Emergency? Yes Information not available 06/02/2015 What Is Your Level Of Caffeine Consumption? None Decaf Information not available 07/05/2024 How Much Tobacco Do You Chew? None Information not available 06/02/2015 In The 14 Days Before Symptom Onset, Have You Had Close Contact With A Laboratory-confir med COVID-19 While That Case Was Ill? No Information not available 06/20/2023 In The 14 Days Before Symptom Onset, Have You Had Close Contact With A Person Who Is Under Investigation For COVID-19 While That Person Was Ill? No [email or web address] Information not available 06/20/2023 Have You Been To An Area Known To Be High Risk For COVID-19? No [email or web address] Information not available 06/20/2023 What Type Of Diet Are You Following? REGULAR Information not available 07/05/2024 Which Illicit Or Recreational Drugs Have You Used? None Information not available 05/21/2020 Have There Been Any Changes To Your Family Or Social Situation? No [email or web address] Information no t available 06/20/2023 Are There Any Guns Present In Your Home? No [email or web address] Information not available 06/20/2023 Live Alone Or With Others? With Others [email or web address] Information not available 06/20/2023 Do You Take Precautions To Prevent Distracted Driving? Yes Information not available 06/02/2015 How Often Do You Need To Have Someone Help You When You Read Instructions, Pamphlets, Or Other Written Material From Your Doctor Or Pharmacy? Never Information not available 06/02/2015 Have You Served In The ? No Information not available 11/03/2016 Have You Or Anyone In Your Household Had Any Of The Following Symptoms In The Last 14 Days: Sore Throat, Cough, Chills, Body Aches For Unknown Reasons, Shortness Of Breath For Unknown Reasons, Loss Of Smell, Loss Of Taste, Fever At Or Greater Than 100 Degrees Fahrenheit? No Information not available 02/10/2020 Are You Or Anyone In Your Household A Health Care Provider Or Emergency Responder? No [email or web address] Information not available 02/10/2020 To The Best Of Your Knowledge Have You Been In Close Proximity To Any Individual Who Tested Positive For COVID-19? No [email or web address] Information not available 02/10/2020 What Was The Date Of Your Most Recent Tobacco Screening? 07/05/2024 Information not available 07/05/2024 How Many Children Do You Have? 1 Information not available 06/02/2015 Do You Use Protection During Sex? No Information not available 06/02/2015 Do You Use Your Seat Belt Or Car Seat Routinely? Yes [email or web address] Information not available 04/09/2021 Seat Belts Used Routinely Yes [email or web address] Information not available 06/20/2023 Are You Sexually Active? No [email or web address] Information not available 04/09/2021 Smoke Alarm In Home Yes [email or web address] Information not available 06/20/2023 Do You Have Smoke And Carbon Monoxide Detectors In Your Home? Yes Information not available 04/09/2021 At What Age Did You Start Smoking Tobacco? 0 Information not available 05/21/2020 Are You Passively Exposed To Smoke? No [email or web address] Information no t available 04/09/2021 How Much Tobacco Do You Smoke? No Information not available 06/02/2015 Do You Use Sunscreen Routinely? Yes Information not available 06/02/2015 How Many Years Have You Smoked Tobacco? 0 Information not available 03/28/2017 Sex: Unknown Functional Status Question Answer Note LastModified by Organizat ion Details LastModified Time Do you use any illicit or recreational drugs? No Information not available 07/05/2024 What is your level of alcohol consumption? Occasional Information not available 06/02/2015 Do you or have you ever used smokeless tobacco? Never used smokeless tobacco [email or web address] Information not available 02/10/2020 Are you currently employed? Yes [email or web address] Information not available 06/07/2022 Are you able to walk independently without assistance or assistive devices? [email or web address] Information not available 06/20/2023 Are you able to care for yourself independently? 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 Never used electronic cigarettes [email or web address] Information not available 06/20/2023 What is your exercise level? Occasional walking 30 min daily and stretches Information not available 07/05/2024 Mental Status None recorded. Family History Relationship Description Onset Age of this Age Resolved Age Notes LastModified by Organization Details LastModified Time Mother Arthritis 94 old age [email or web address] Not available 06/02/2015 10:30:17 Father Chronic obstructive pulmonary disease 69 [email or web address] Not available 10:30:17 Brother Malignant neoplasm of larynx 57 brothe r doing well [email or web address] Not available 06/20/2023 09:05:07 Medical History Condition Response Other N Gout N Kidney Stones N Blood Diseases N Hyperthyroidism N Breast Cancer N Hypothyroidism N Lung Disease N COPD N Depression N Defects or Inherited Disease N Anesthesia Complications N Headaches/Migraines N Varicose Veins Y Anxiety Disorder N Obesity N Vision or Eye Problems N Arthritis Y Head Injury/Concussion N Infertility N Polyps N Congenital Anomalies N Acid Reflux (GERD) Y Cancer N Stroke N ADHD N Endometriosis N High Cholesterol N Liver Disease N Fibromyalgia N Kidney Disease N Heart Problems N Ear or Hearing Problems N Hospitalizations Y Thyroid Problems N GI Problems N Acne N Eating Disorder N Skin Problems N Anemia N Constipation N Bladder Problems N Mental Illness N Ovarian Cancer N Diabetes N Blood Transfusions N Seizures/Epilepsy N Tuberculosis N AIDS/HIV N Congestive Heart Failure (CHF) N Eczema N Diverticulitis N Abuse/Domestic Violence N Asthma N Allergies N Reflux/GERD Y Hepatitis N Pulmonary Embolism N Hypertension N Chicken Pox N Autism Spectrum Disorder (ASD) N Osteoporosis Y Gynecological History Statement/Question Response Abnormal Pap N Flow Heavy 05/07/2002 STIs/STDs N Duration of Flow (days) 7 Age at Menarche 16 Current Control Method None Most Recent Mammogram 07/01/2024 Age at First Child 30 If Post Menopausal, Age at Menopause 52 Date of Last Colonoscopy 08/24/2018 Most Recent Bone Density 05/07/2014 Sexually Active? Y Date of Last Pap Smear 06/19/2019 Sexual Problems? N Desired Control Method N/A N Obstetrics History GPAL:G 0 P 0 0 0 0 Immunizations Vaccine Type Date Status Note Provider Nam e and Address Organization Details Recorded Time Influenza, split virus, quadrivalent, PF 6 completed Not Available [facility] 11/15/2022 08:38:40 Influenza, high-dose, quadrivalent, PF 0 completed Not Available [facility] 11/15/2022 08:38:40 COVID-19, mRNA, LNP-S, PF, 30 mcg/0.3 mL dose 1 completed Not Available [facility] 11/15/2022 08:38:40 COVID-19, mRNA, LNP-S, PF, 30 mcg/0.3 mL dose 1 completed Not Available [facility] 11/15/2022 08:38:40 Influenza, split virus, quadrivalent, preservative 9 completed Not Available [facility] 11/15/2022 08:38:40 Influenza, high-dose, trivalent, PF 9 completed Not Available [facility] 11/15/2022 08:38:40 COVID-19, mRNA, LNP-S, PF, 30 mcg/0.3 mL dose 1 completed Not Available [facility] 11/15/2022 08:38:40 Influenza, split virus, quadrivalent, PF 7 completed Not Available [facility] 11/15/2022 08:38:40 Td (adult), 2 Lf tetanus toxoid, preservative free, adsorbed 1 completed Not Available [facility] 11/15/2022 08:38:40 Influenza, high-dose, quadrivalent, PF 2 completed Not Available [facility] 11/15/2022 08:38:40 COVID-19, mRNA, LNP-S, PF, 30 mcg/0.3 mL dose, dwayne-sucrose 2 completed Not Available [facility] 11/15/2022 08:38:40 Influenza, split virus, quadrivalent, PF 5 completed Not Available [facility] 11/15/2022 08:38:40 pneumococcal polysaccharide PPV23 9 completed Not Available [facility] 11/15/2022 08:38:40 Influenza, high-dose, quadrivalent, PF 1 completed Not Available [facility] 11/15/2022 08:38:40 Influenza, split virus, quadrivalent, preservative 4 completed [facility] 06/20/2023 09:20:57 COVID-19, mRNA, LNP-S, bivalent, PF, 30 mcg/0.3 mL dose 3 completed [facility] 06/20/2023 09:20:57 COVID-19, mRNA, LNP-S, PF, dwayne-sucrose, 30 mcg/0.3 mL 3 completed [facility] 06/20/2023 09:25:57 Influenza, high-dose, quadrivalent, PF 4 completed [facility] 07/05/2024 15:06:11 Influenza, high-dose, trivalent, PF 4 completed [facility] 07/05/2024 15:06:11 COVID-19, mRNA, LNP-S, PF, dwayne-sucrose, 30 mcg/0.3 mL 4 completed Not Available [facility] 12/24/2024 15:03:44 Td (adult), 2 Lf tetanus toxoid, preservative free, adsorbed 1 completed Not Available [facility] 11/15/2022 08:38:40 Tdap 1 completed Not Available [facility] 11/15/2022 08:38:40 Influenza, split virus, trivalent, preservative 1 completed Not Available [facility] 11/15/2022 08:38:40 zoster live 3 completed Not Available [facility] 11/15/2022 08:38:40 Past Encounters Encounter ID Performer Location Encounter Start Date Encounter Closed Date Diagnosis/Indication Diagnosis SNOMED-CT Code Diagnosis ICD10 Code Diagnosis IMO Codes Diagnosis Note [id number] [facility] [address] [facility] [place] [address] 11/03/2006 00:00:00 [id number] [employer] [facility] [address] [facility] [place] [address] 07/17/2007 00:00:00 [id number] [employer] erce [address] [facility] [place] [address] 01/22/2008 00:00:00 [id number] [employer] [facility]ce [address] [facility] [place] [address] 05/13/2008 00:00:00 [id number] [facility] erce [address] [facility] [place] [address] 07/06/2009 00:00:00 [id number] [facility] [facility] [address] [facility] [place] [address] 07/16/2009 00:00:00 [id number] [place], [place] [address] 10/05/2009 00:00:00 [id number] [address] [address] [place], [place] [address] 02/22/2010 00:00:[id number] [facility] [address] [place], [place] [address] 08/27/2010 00:00:00 [id number] [facility] erce [address] [place], [place] [address] 10/07/2010 00:00:00 [id number] [employer] erce [address] [facility] [place], [place] [address] 10/10/2011 00:00:00 [id number] [employer] erce [address] [facility] [place] [address] 02/01/2013 00:00:00 [id number] Omid fermin MD Main Office [address] [place] [address] 06/02/2015 09:46:55 06/02/2015 10:38:57 Adult health examination 307346637 Z00.00 colonoscop y due in 2016/Mectalf Needs infl uenza immunization 781370590 Z23 Osteoporosis 79289336 M8 1.[address] Carrasquillo who treats her hyperpara and her osteoporos is [id number] Omid fermin MD Main Office [address] [place] [address] 11/03/2016 14:35:15 11/03/2016 16:10:47 Acute dermatitis 88173559 L30.9 Vitamin D deficiency 347 89923 E55.9 Hyperlipidemia 10843582 E78.5 Screening for malignant neoplasm of colon 661917448 Z12.11 [id number] Omid fermin MD Main Office [address] [place] [address] 03/28/2017 15:44:24 03/28/2017 16:39:24 Screening for malignant neoplasm of colon 233107659 Z12.11 [id number] Omid fermin MD Main Office [address] [facility] [address] [place] [address] 04/11/2017 13:21:03 04/11/2017 14:28:14 Adult health examination 506168929 Z00.00 Screening for malignant neoplasm of cervix 392816215 Z12.4 Screening for malignant neoplasm of breast 958643957 Z12.39 Needs infl uenza immunization 014957124 Z23 [id number] Janelle Urbano PA-C Main Office [address] [facility] [address] [place] [address] 08/14/2018 15:11:45 08/14/2018 16:10:44 Adult health examination 709695435 Z00.00 Influenza vaccine needed 2987343825 106 Z23 Administra tion of pneumococcal vaccine 59834522 Z23 Screening for malignant neoplasm of breast 728393206 Z12.31 Screening for malignant neoplasm of cervix 872437692 Z12.4 Hyperlipidemia 15619486 E78.00 retest labs. Primary hyperparathyroidism 64142836 E21.0 monitored by endocrinol ogist Osteoporosis 17371204 M8 1.0 F/u endo. [id number] Meet Hassan MD Main Office [address] [facility] [address] [place] [address] 02/05/2019 10:35:13 02/05/2019 11:48:41 Acute ankle pain 8560221619 9105 M25.572 suspect contusion of L lat mal, doubt gout since no h/o such and no heat check xray to r/o hairline fx if + will send to ortho if negative, then cont augusto wrap (to decrease mild edema), nsaids, ice/elevat e - in a few days consider warm soak/alpha bet stretch [id number] Drew Garcia MD Telehealt [address] [facility] [address] [place] [address] 01/06/2020 13:07:14 01/06/2020 15:38:40 Chronic neck pain 5479669858 107 M54.2 start with PT, NSAIDs and muscle relaxants. F/u 4-6 weeks. Strain of right trapezius muscle 1278765153 4230245 S29.012A [id number] Drew Garcia MD [facility] [address] [address] [place] [address] 02/10/2020 08:07:39 02/10/2020 11:49:26 Adult health examination 957121893 Z00.00 Vaccines are up to date. All preventati ve tests reviewed and are up to date. Osteoporosis 49199010 M8 1.0 F/u endo. pt.. is on alendronat e. Vitamin D deficiency 347 36274 E55.9 stable on vit D3 supplement s. Hyperlipidemia 29164233 E78.00 retest labs. Varicose v eins of lower extremity 06705144 I83.91 Degenerati on of cervical intervertebral disc 39726636 M50.30 mild disease. Pt. will continue PT and home exercises and take meloxicam prn as discussed. Primary hyperparathyroidism 48556525 E21.0 monitored by endocrinol ogist [id number] Dick Teixeira MD [facility] [address] [address] [place] [address] 05/21/2020 10:36:30 05/21/2020 14:27:12 Diarrhea 55611403 R19.7 will check stool studies and bloodwork. ? viral/ infectious as her has the exact same sx. recommend a daily probiotic/ yogurt and hydration, bland foods as advance as tolerated. Abdominal pain 41669344 R10.9 [id number] Janelle Urbano PA-C Main Office [address] [address] [place] [address] 04/09/2021 13:39:17 04/09/2021 14:24:55 Adult health examination 097798479 Z00.00 update Td today and recommend flu vaccine. Requires a tetanus booster 715431129 Z23 Screening for malignant neoplasm of cervix 517234720 Z12.4 Screening for malignant neoplasm of breast 655222429 Z12.31 Osteoporosis 75231175 M8 1.0 F/u endo. pt.. is on alendronat e. Hyperlipidemia 19148656 E78.00 retest fasting labs. Vitamin D deficiency 347 68921 E55.9 stable on vit D3 supplement s. Degenerati on of cervical intervertebral disc 78634682 M50.30 mild disease. continue PT and acupunctur e. Gastroesop hageal reflux disease 487656037 K21.9 managed with diet and PPI PRN. [id number] Logan Santos MD Main Office [address] [facility] [address] [place] [address] 06/07/2022 10:38:13 06/07/2022 11:44:38 Adult health examination 731680422 Z00.00 recommend Prevnar 20. Hyperlipidemia 02237445 E78.00 retest fasting labs.Eric nue low fat diet. Osteoporosis 41601508 M8 1.0 F/u endo. pt.. is on alendronat e. Degenerati on of cervical intervertebral disc 76496008 M50.30 mild disease. continue PT and acupunctur e. Screening for malignant neoplasm of breast 568949191 Z12.31 already booked by pt. Administra tion of pneumococcal vaccine 91830300 Z23 referral Intermitte nt palpitations 085836879 R00.2 initiate labs and echo cardiogram as well as referral to cardiologi . Osteoarthr itis of joint of bilateral hands 5350016894 86775 M19.041 refer to rheumatolo gist. Gastroesop hageal reflux disease 259943408 K21.9 managed with diet and PPI PRN. Vitamin D deficiency 347 94109 E55.9 stable on vit D3 supplement s. [id number] EMMANUEL UNGER MD Telehealt h [address] [address] [place] [address] 02/27/2023 08:42:18 02/27/2023 10:01:17 Eczema 02742551 L30.9 Apply steroid cream thin payer twice daily for 1 week. Avoid scratching the area. [id number] Logan Santos MD Main Office [address] [facility] [address] [place] [address] 06/20/2023 09:03:24 06/20/2023 10:15:40 Adult health examination 667377345 Z00.00 recommend Prevnar 20 and RSV vaccines are recommende d through the pharmacy. Referral for mammograph y provided. Gastroesop hageal reflux disease 122184397 K21.9 managed with diet and PPI PRN. Osteoarthr itis of joint of bilateral hands 9955190300 33719 M19.041 stable Body mass index 25-29 - overweight 294522874 E66.3 Z68.28 discussed recom. to increase exercise activity. Lower total calories and carbs. Benign ess ential hypertension 7721651 I10 sees cardiology yearly, has stable blood pressure on low sodium diet. Degenerati on of cervical intervertebral disc 97284053 M50.30 mild disease. continue PT and acupunctur e. Hyperlipidemia 10802309 E78.00 retest fasting labs.Eric nue low fat diet. Osteoporosis 61542729 M8 1.0 F/u endo. pt.. is on alendronat e. Vitamin D deficiency 347 18048 E55.9 stable on vit D3 supplement s. Administra tion of pneumococcal vaccine 10949235 Z23 referral Screening for malignant neoplasm of breast 893306047 Z12.31 already booked by pt. Advance di rective discussed with patient 957074018 Z71.89 Discussed MOLST and proxy and filled out forms. Aortic valve disorder 87 28932 I35.9 Very mild grade. PT. is asymptomat ic and has echo done every [address] [id number] Logan Santos MD Telehealt h [address] [facility] [place] [address] 07/03/2023 10:13:08 07/03/2023 10:49:19 COVID-19 533309639 U07.1 Mild symptoms related to COVID 19. PT. had all her booster including a new booster recently. She is almost 5 days into her symptoms, so advised not to start Paxlovid at this point. Recommend symptomati c reliev otc meds, hydration and rest. Isolation recommenda tions discussed. [id number] Meet Hassan MD Main Office [address] [facility] [place] [address] 07/05/2024 14:47:25 07/05/2024 15:38:17 Adult health examination 783122785 Z00.00 recommend Prevnar 20 and RSV vaccines are recommende d through the pharmacy. Referral for mammograph y provided. Body mass index 25-29 - overweight 806338249 E66.3 Z68.27 discussed recom. to increase exercise activity. Lower total calories and carbs. Benign ess ential hypertension 9584777 I10 sees cardiology yearly, has stable blood pressure on low sodium diet. Aortic valve disorder 87 68597 I35.9 Very mild grade. PT. is asymptomat ic and has echo done every [address] Davila on of cervical intervertebral disc 63691137 M50.30 mild disease. continue PT and acupunctur e. Hyperlipidemia 90504944 E78.00 retest fasting labs.Eric nue low fat diet. Gastroesop hageal reflux disease 025796706 K21.9 managed with diet and PPI PRN. Osteoporosis 91869901 M8 1.0 F/u endo. Just had repeat bone density this week. Has intoleranc e to alendronat e. Paroxysmal supraventricular tachycardia 75091291 I47.10 stable with occasional symptoms. Vitamin D deficiency 347 30520 E55.9 stable on vit D3 supplement s. Administra tion of pneumococcal vaccine 61124722 Z23 referral [id number] Dick Teixeira MD Main Office [address] [facility] [address] [facility] [place] [address] 12/24/2024 14:59:29 12/24/2024 15:58:57 Trochanteric bursitis of left hip 9275977734 11942 M70.62 [id number] Recommend for now to continue advil 400 mg TID with food and consider seeing orthopedic s for cortisone injection. Health Concerns Section Related Observation LastModified by Organization Detai ls LastModified Time None Recorded Concern Status LastModified by Organization Details LastModified Time None Recorded Advance Directives Directive N: Payers Insurance Date Sequence Insurance Name Policy Number Policy Armstrong Covered Member ID Armstrong Member ID Guarantor Name 12/24/2024 1 [place]ICARE [place]: [employer] Bertha Bailey [id number] Bertha Bailey 01/06/2025 2 [facility] [place] [place] [id number] Bertha Bailey [id number] Bertha Bailey Notes Date Note Type Note Provider Name and Address Organization Details Recorded Time 02/27/2023 text/html 72 year old female c/o pruritic patch on the skin of the lower back for 1 week, about a size of quater. Denies tenderness, drainage, tingling , numbness or pain. Uses calamine for itching. NO fever, chills. Janelle Urbano PA-C [address] [address], [place], [address], [facility] 02/27/2023 09:55:06 06/20/2023 text/html Medicare Annual Wellness VisitReported by PatientSocial/Behavior al HistoryFor diet and nutrition, patient reportshealthy diet. For fracture risk, patient reportsno history of fractures,no recent explained fracture,no sudden unexplained fractures, andno previous musculoskeletal injuries. For physical activity, patient reportsexercises on a regular basis,recent increase in physical activity, andgood physical condition.Mental Status:For depression risk, patient reportsnever feels sad, empty, or tearful,no loss of interest in activities,no significant changes in weight,no sleep disturbances or insomnia,no agitation,no loss of energy,no feelings of worthlessness or guilt,no thoughts of suicide,no history of depression, andno history of mood disorders. For orientation, patient reportsno disorientation to time,no disorientation to date, andno disorientation to place. For concentration and memory, patient reportsno decreased concentrating ability,no memory lapses or loss, anddoes not forget words. For speech/motor difficulties, patient reportsno speech difficulties,no difficulty expressing formulated concepts,no difficulty with fine manipulative tasks,no difficulty writing/copying,no slowed reaction time, anddoes not knock things over when trying to pick them up.Functional AbilityFor hearing, patient reportsno loss of hearing. For vision, patient reportsno vision problems. For activities of daily living, patient reportsable to bathe with limited or no assistance,able to contol urination and bowels,able to dress with limited or no assistance,able to feed self with limited or no assistance,able to get out of chair or bed with limited or no assistance,able to groom with limited or no assistance, andable to toilet with limited or no assistance. For instrumental activities of daily living, patient reportsable to do house work with limited or no assistance,able to grocery shop with limited or no assistance,able to manage medications with limited or no assistance,able to manage money with limited or no assistance,able to prepare meals with limited or no assistance, andable to use the phone with limited or no assistance. For falls risk assessment, patient reportsno frequent falls while walking,no fall in the past year,no fall since last visit, andno dizziness/vertigo. For home safety, patient reportsno unsafe jai hazzards,no unsafe stairs,no unsafe gas appliances,working smoke/co detectors,wears protective head gear for biking/high velocity,use of seatbelts,practicing 'safer sex',no vision or hearing loss while driving,no fire arms,has hand bars in the bathroom/shower, andgood lighting in the home.ROS as noted in the HPI 73 year old female for annual Medicare wellness.Mammogram normal a year ago in June. Colonoscopy was normal i 2018. Recall 10 year for 1 more procedure.Colonoscopy normal in 2019 with 10 year recall.Vaccines: Up to date on COVID, Tdap, flu vaccine. Needs: Prevnar 20, RSV.BMI is 28.8Paroxysmal SVT. Sees bar assistant yearly. Pt. c/o ongoing intermittent palpitations for the past year. No chest pressure or pain, no dyspnea at rest or on exertion. NO dizziness or light headedness.Last Holter was negative in July of 2022. Recommended to repeat every 3 years. Mild aortic insufficiency.Mild hyperlipidemia , diet controlled. HTN is stable on no meds.Osteoporosis. Last bone density in 2019. Pt. is on alendronate. Sees endo for this and is booked for repeat bone density. Continues Vit D supplements. No fractures reported in the past year.Cervical disc degeneration. No pain, no constant symptoms. ROM is limited in the neck on rotation, muscle spasms occur. Sees chiropractor and acupuncture monthly.PHQ, COTY , 6CIT and fall risk assessments are negative. Janelle Urbano PA-C [address] [facility] [address], [place], [address], [facility] 06/20/2023 10:14:15 07/03/2023 text/html COVID-19 Symptom s December 2019Reported by [id number] year old female c/o cold symptoms for 4-5 days. Tested positive today. was with COVID a week ago. Pt. has relatively mild symptoms of congestion and fatigue. NO cough. Had immunization and all boosters. NO fever, chills. Janelle Urbano PA-C [address] [address], [place], [address], [facility] [place] 07/03/2023 10:43:30 07/05/2024 text/html Medicare Annual Wellness VisitReported by PatientSocial/Behavior al HistoryFor diet and nutrition, patient reportshealthy diet. For fracture risk, patient reportsno history of fractures,no recent explained fracture,no sudden unexplained fractures, andno previous musculoskeletal injuries. For physical activity, patient reportsexercises on a regular basis,recent increase in physical activity, andgood physical condition.Mental Status:For depression risk, patient reportsnever feels sad, empty, or tearful,no loss of interest in activities,no significant changes in weight,no sleep disturbances or insomnia,no agitation,no loss of energy,no feelings of worthlessness or guilt,no thoughts of suicide,no history of depression, andno history of mood disorders. For orientation, patient reportsno disorientation to time,no disorientation to date, andno disorientation to place. For concentration and memory, patient reportsno decreased concentrating ability,no memory lapses or loss, anddoes not forget words. For speech/motor difficulties, patient reportsno speech difficulties,no difficulty expressing formulated concepts,no difficulty with fine manipulative tasks,no difficulty writing/copying,no slowed reaction time, anddoes not knock things over when trying to pick them up.Functional AbilityFor hearing, patient reportsno loss of hearing. For vision, patient reportsno vision problems. For activities of daily living, patient reportsable to bathe with limited or no assistance,able to contol urination and bowels,able to dress with limited or no assistance,able to feed self with limited or no assistance,able to get out of chair or bed with limited or no assistance,able to groom with limited or no assistance, andable to toilet with limited or no assistance. For instrumental activities of daily living, patient reportsable to do house work with limited or no assistance,able to grocery shop with limited or no assistance,able to manage medications with limited or no assistance,able to manage money with limited or no assistance,able to prepare meals with limited or no assistance, andable to use the phone with limited or no assistance. For falls risk assessment, patient reportsno frequent falls while walking,no fall in the past year,no fall since last visit, andno dizziness/vertigo. For home safety, patient reportsno unsafe jai hazzards,no unsafe stairs,no unsafe gas appliances,working smoke/co detectors,wears protective head gear for biking/high velocity,use of seatbelts,practicing 'safer sex',no vision or hearing loss while driving,no fire arms,has hand bars in the bathroom/shower, andgood lighting in the home.ROS as noted in the HPI 74 year old female for annual Medicare wellness.Mammogram is normal this month.Colonoscopy normal in 2019 with 10 year recall.Vaccines: Up to date on Td. Pneumovax 23 in 2019. NO Prevnar 20 or RSV.BMI is 28.8Paroxysmal SVT. Sees bar assistant yearly. Pt. c/o ongoing intermittent palpitations for the past year. No chest pressure or pain, no dyspnea at rest or on exertion. NO dizziness or light headedness.Last Holter was negative in July of 2022. Recommended to repeat every 3 years. Mild aortic insufficiency.Mild hyperlipidemia , diet controlled. HTN is stable on no meds.Osteoporosis. Last bone density in 2019. Pt. was on alendronate. Sees endo for this.Cervical disc degeneration. No pain, no constant symptoms. ROM is limited in the neck on rotation, muscle spasms occur. Sees chiropractor and acupuncture monthly.PHQ, COTY , 6CIT and fall risk assessments are negative. Janelle Urbano PA-C [address] [address], [place], [address], [facility] 07/05/2024 15:36:01 12/24/2024 text/html ROS as noted in the HPI 74 year old female c/o 1 week onset of L. hip pain. NO injury , fall , prior issues. NO new activity reported. NO rash, insect bites. Pain is worse with walking and when she presses on the area she can elicit pain. Pt takes advil 400 mg 3 times daily and reports mild in pain since the start of medicine. Pt has josue with orthopedics next week but unsure if she needs it. Janelle Urbano PA-C [address] [address], [place], [address], [facility] 12/24/2024 16:05:12 OBGyn Episode No OBEpisode recorded.
--- OUTSIDE RECORDS SUMMARY | 2025-06-20 20:09 | XMS_ITS | Clinical Summary ---
Author Organization [facility] Address [address] [address] Phone Care Team Providers Care Brand Specialist Name Role Phone Susy Sainz Primary Care Provi mila Allergies No known active allergies Medications alendronate (FOSAMAX) 70 MG tablet alendronate 70 mg tablet TAKE 1 TABLET BY MOUTH EVERY WEEK 1 Active calcium citrate-vitamin D3 (CITRACAL+D) 315 mg-5 mcg (200 unit) per tablet daily. Active cholecalciferol (VITAMIN D3) 2,000 unit capsule daily. Active fexofenadine (JENNIFER) 180 MG tablet daily. Active fluticasone propionate (FLONASE) 50 mcg/actuation nasal spray daily. Active magnesium citrate 125 mg Cap daily. Active omeprazole (PRILOSEC) 20 mg TbEC Take 20 mg by mouth daily before breakfast. Active diclofenac sodium (VOLTAREN) 1 % Gel APPLY 2G TOPICALLY 4 TIMES A DAY APPLY TO AFFECTED JOINT 3 Active Active Problems Problem Noted Date Diagnosed Date Paroxysmal supraventricular tachycardia 08/23/19 23 Palpitations 06/15/2022 Assessment & Plan (08/23/2022 1:02 PM EST): She showed some APCs and 3 4 beat runs of atrial tachycardia that not sustained at this point there is no need to treat them but if she continues to have a lot of palpitation we will consider using a beta-gila Assessment & Plan (06/15/2022 7:51 PM EST): She has palpitation for one year. We will geta Holter monitor for detection of SVT/ VT. Abnormal electrocardiogram 06/15/2022 Assessment & Plan (08/23/2022 1:03 PM EST): ETT is negative and echo showed normal LV function with no wall motion abnormality Assessment & Plan (06/15/2022 7:54 PM EST): EKG done is office showed Sinus rhythm and non diagnostic ST T changes. Other chest pain 06/15/2022 Assessment & Plan (08/23/2022 1:01 PM EST): The stress test shows no evidence of ischemia. If patient continues to have more and she will call us Assessment & Plan (06/15/2022 7:53 PM EST): She describes chest tightening off and on We will do a stress test for detection of ischemia. Schedule echo for LV wall motion. Benign essential hypertension 06/15/2022 Assessment & Plan (06/15/2022 7:55 PM EST): She has high BP of 142/80 mm Hg. She was advised to keep monitoring at home. Social History Tobacco Use Types Packs/Day Years Used Date Smoking Tobacco: Never Smokeless Tobacco: Never Tobacco Cessation:Counseling Given: Not Answered Education Answer Date Recorded Are you interested in more education? Not on lauro e 12/03/2022 Are you concerned about learning? Not on file 12/03/2022 No 12/03/2022 No 12/03/2022 Digital Access Answer Date Recorded No 01/01/2023 No 01/01/2023 No 01/01/2023 Reliable internet access at home? Not on file 01/01/2023 Device with a working camera? Not on file Comments Unknown Sex and Gender Information Value Date Recorded Sex Assigned at Not on file Legal Sex Female 1:18 PM EDT Gender Identity Not on file Sexual Orientation Not on file Last Filed Vital Signs Vital Sign Reading Time Taken Comments Blood Pressure 140/86 11/15/2022 7:44 AM EDT Pulse 72 11/15/2022 7:44 AM EDT Temperature - - Respiratory Rate - - Oxygen Saturation 99% 11/15/2022 7:44 AM EDT Inhaled Oxygen Concentration - - Weight 69.4 kg (153 lb) 11/15/2022 7:44 AM EDT Height 154.9 cm (5' 1 ) 08/23/2022 12:04 PM EST Body Mass Index 28.91 08/23/2022 12:04 PM EST Plan of Treatment Health Maintenance Due Date Last Done Comments Adult Td,Tdap Booster 1952 LIPID PANEL 1952 DEPRESSION SCREENING 1964 HEPATITIS C SCREENING 1970 MAMMOGRAM 1992 COLOGUARD 1997 COLONOSCOPY 1997 COLORECTAL CANCER SCREENING 1997 FIT TEST 1997 FOBT 1997 SIGMOIDOSCOPY 1997 VIRTUAL COLONOSCOPY 1997 PNEUMOCOCCAL VACCINES (50+ y ears) (1 of 1 - PCV) 2002 ZOSTER VACCINES (1 of 2) 2002 OSTEOPOROSIS SCREENING INITI AL (ONE-TIME) 2017 BLOOD PRESSURE 05/17/2023 11/15/2022 INFLUENZA VACCINE (#1) 2025 COVID-19 VACCINE (1 - 2024-2 6 season) 2025 RSV VACCINE (1 - 1-dose 75+ series) 2027 SMOKING STATUS SCREENING (On ce After 26 Yrs) Completed 11/15/2022 HEPATITIS A VACCINES Aged Out No long er eligible based on patient's age to complete this topic HIB VACCINES Aged Out No longer eligi ble based on patient's age to complete this topic IPV VACCINES Aged Out No longer eligi ble based on patient's age to complete this topic MENINGOCOCCAL VACCINES (ACWY) Aged Out No longer eligible based on patient's age to complete this topic MENINGOCOCCAL VACCINES (B) Aged Out N o longer eligible based on patient's age to complete this topic Medical Devices Not on file Insurance MEDICARE PART A & B Member Subscriber Plan / Payer (Ef fective 2017-Present) Name:Bertha Bailey Member ID:[id number] Relation to Subscriber:Self Name:Bertha Bailey Subscriber ID:[id number] Payer ID:[id number] Group ID:Not on file Type:Medicare Address: [employer] [address] [place] [phone] [facility] PCP REQ SUPPLEMENT MEDICARE PART A [place] [address] [place] [address] PCP REQ SUPPLEMENT MEDICARE PART A & B [employer] PCP REQ SUPPLEMENT MEDICARE PART A & B [employer] PCP REQ SUPPLEMENT MEDICARE PART A & B [facility] MED[facility] PCP REQ SUPPLEMENT MEDICARE PART A & B Member Subscriber Plan / Payer (Ef fective 2017-Present) Name:Bertha Bailey Member ID:[id number] Relation to Subscriber:Self Name:Bertha Bailey Subscriber ID:[id number] Payer ID:[id number] Group ID:Not on file Type:Medicare Address: [employer] [address] [facility] PCP REQ SUPPLEMENT MEDICARE PART A & B [employer] [place] [employer] PCP REQ SUPPLEMENT MEDICARE PART A & B [employer] MEDEX PCP REQ SUPPLEMENT MEDICARE PART A & B Member Subscriber Plan / Payer (Ef fective 2017-Present) Name:Bertha Bailey Member ID:[id number] Relation to Subscriber:Self Name:Bertha Bailey Subscriber ID:[id number] Payer ID:[id number] Group ID:Not on file Type:Medicare Address: [employer] [address] [place] [id number] [employer] [facility] PCP REQ SUPPLEMENT Care Teams Brand Specialist Relationship Specialty Start Date End Date Susy Sainz PA [address] [phone] PCP - General Pump Press Operator 06/08/22 Additional Source Comments The information contained in this document represents components of the legal health record. It is not the complete legal health record.[facility]
== END 2025-06-20 14:27 | disposition home or self-care (01) ==
LOC: HO.RHES 13:47
PROVIDERS: PCP Physician Assistant Medical; Visit Provider Student in an Organized Health Care Education/Training Program
DX: M19.041 Primary osteoarthritis, right hand (principal); M19.042 Primary osteoarthritis, left hand; M81.0 Age-related osteoporosis without current pathological fracture
CPT/HCPCS: 99214; G2211

== ENCOUNTER → 2025-06-20 13:46 | Outpatient (BNVA) | payer MEDICARE, BC, SELFPAY | PROVIDERS: PCP Physician Assistant Medical; Visit Provider Student in an Organized Health Care Education/Training Program | DX: M19.041 Primary osteoarthritis, right hand (principal); M19.042 Primary osteoarthritis, left hand; M81.0 Age-related osteoporosis without current pathological fracture | CPT/HCPCS: 99212 ==